=== PATIENT | male | born 1940 | race African-American/Black ===

== ENCOUNTER 2022-10-31 16:53 | Emergency (ER) | payer MEDICARE ==
[~2022-10-31] VITALS: Ht 180.3 cm; Wt 102.1 kg
[2022-10-31] MEDS ORDERED: SODIUM CHLORIDE 0.9% 500ML 500 ML ONE (17:05)
[2022-10-31] MEDS ORDERED: SODIUM CHLORIDE 0.9% 500ML 500 ML IV ONE (17:15)
[2022-10-31 17:17] LABS: BASOPHILS % 0.4 % (0.0-1.0); EOSINOPHILS % 0.5 % (0.0-6.0); HEMATOCRIT 43.4 % (38.2-49.6); HEMOGLOBIN 15.2 g/dL (14.0-18.0); LYMPHOCYTES # (AUTO) 1.6 (1.0-3.2); LYMPHOCYTES % 29.1 % (18.0-39.1); MEAN CORPUSCULAR HEMOGLOBIN 32.5 pg (28-32); MEAN CORPUSCULAR VOLUME 92.9 fL (81-99); MONOCYTES # (AUTO) 0.4 (0.2-0.8); MONOCYTES % 6.4 % (4.4-11.3); NEUTROPHILS # (AUTO) 3.6 (2.1-6.9); NEUTROPHILS % 63.4 % (38.7-80.0); PLATELET COUNT 123 x10e3/uL (140-360); RED BLOOD COUNT 4.67 x10e6/uL (4.3-5.7); RED CELL DISTRIBUTION WIDTH 13.2 % (11.7-14.4)
[2022-10-31 17:24] LABS: INR 1.66; PROTHROMBIN TIME 20.1 seconds (11.9-14.5)
[2022-10-31 17:25] LABS: PARTIAL THROMBOPLASTIN TIME 31.4 seconds (23.8-35.5)
[2022-10-31 17:35] LABS: ALBUMIN 3.7 g/dL (3.5-5.0); ANION GAP 15.3 mmol/L (8-16); CREATININE, SERUM 1.08 mg/dL (0.72-1.25); MAGNESIUM 1.6 MG/DL (1.3-2.1); POTASSIUM 3.3 mmol/L (3.5-5.1)
[2022-10-31 17:38] LABS: CLARITY,URINE HAZY (CLEAR); COLOR,URINE YELLOW (YELLOW); KETONES,URINE NEGATIVE (NEGATIVE); LEUKOCYTE ESTERASE ,URINE NEGATIVE (NEGATIVE); NITRITE,URINE NEGATIVE (NEGATIVE); PROTEIN,URINE DIPSTICK NEGATIVE (NEGATIVE); URINE UROBILINOGEN 0.2 mg/dL (0.2 - 1)
[2022-10-31 17:39] LABS: BACTERIA,URINE FEW /HPF; EPITHELIAL CELLS,URINE FEW /LPF; RBC,URINE 0-5 /HPF (0-5); WBC,URINE (MAN) 0-5 /HPF (0-5)
[2022-10-31] MEDS ORDERED: IOPAMIDOL 370 MG/ML 100 ML INFUS..BTL INJ ONE (17:40)
[2022-10-31 17:41] LABS: CREATINE KINASE MB 2.4 ng/mL (0-5.0)
[2022-10-31] MEDS ORDERED: POTASSIUM CHLORIDE 20 MEQ TAB CR PO STA (18:12)
[2022-10-31 20:19] VITALS: BP 139/85
== END 2022-10-31 20:05 | disposition home or self-care (01) ==
LOC: ER 17:02
DX: R27.0 Ataxia, unspecified (principal); R50.9 Fever, unspecified; I10 Essential (primary) hypertension; E11.65 Type 2 diabetes mellitus with hyperglycemia; I48.91 Unspecified atrial fibrillation; Z20.822 Contact with and (suspected) exposure to COVID-19; R94.31 Abnormal electrocardiogram [ECG] [EKG]
CPT/HCPCS: 36415; 70450; 70496; 70498; 71045; 80053; 81001; 82550; 82553; 83735; 84484; 85025; 85610; 85730; 87086; 93005; 99284; J7040; Q9967; U0002

== ENCOUNTER 2025-05-19 09:30 | Emergency (ER) | payer MEDICARE ==
[~2025-05-19] VITALS: Ht 180.3 cm; Wt 93.4 kg
[2025-05-19 09:30] VITALS: TEMP 97.6
[~2025-05-19 09:30] MED LIST: ALLOPURINOL300 MG PO; BUPROPION XL150 MG PO; CIALIS20 MG; COREG12.5 MG PO; FLOMAX0.4 MG PO; FUROSEMIDE40 MG PO; GABAPENTIN100 MG PO; MONTELUKAST SOD10 MG PO; OXYBUTYNIN CHLOR5 MG PO; POTASSIUM CHLO20 ME1 PO; TIZANIDINE HCL4 M1 PO; VALSARTAN-HCTZ1 EAC3; WARFARIN SODIUM5 MG PO
[2025-05-19] MEDS: SODIUM CHLORIDE 0.9% 1000ML 1,000 ML IV STA (10:00)
[2025-05-19 10:10] LABS: BASOPHILS % 0.1 % (0.0-1.0); EOSINOPHILS % 0.6 % (0.0-6.0); LYMPHOCYTES % 18.6 % (18.0-39.1); MONOCYTES % 10.3 % (4.4-11.3); NEUTROPHILS % 68.9 % (38.7-80.0); RED CELL DISTRIBUTION WIDTH 14.7 % (11.7-14.4)
[2025-05-19 10:24] LABS: EST GLOMERULAR FILTRATION RATE 64.0 ML/MIN (>=60)
[2025-05-19] MEDS ORDERED: IOPAMIDOL 370 MG/ML 100 ML INFUS..BTL INJ ONE (10:42)
[2025-05-19] MEDS: DICYCLOMINE HCL 20 MG/2 ML VIAL IM ONE (11:34)
[2025-05-19 11:54] LABS: EPITHELIAL CELLS,URINE FEW /LPF; LEUKOCYTE ESTERASE ,URINE NEGATIVE (NEGATIVE); PROTEIN,URINE DIPSTICK NEGATIVE (NEGATIVE); URINE UROBILINOGEN 2 mg/dL (0.2 - 1); WBC,URINE (MAN) 0-5 /HPF (0-5)
[2025-05-19 13:15] LABS: INR 1.45
[2025-05-19 14:17] VITALS: PULSE 79; RESP 16; O2SAT 100
[2025-05-19 14:18] VITALS: TEMP 98.3
== END 2025-05-19 14:30 | disposition other institution (70) ==
LOC: ER 09:36
DX: L76.22 Postprocedural hemorrhage of skin and subcutaneous tissue following other procedure (principal); T81.40XA Infection following a procedure, unspecified, initial encounter; L76.82 Other postprocedural complications of skin and subcutaneous tissue; I10 Essential (primary) hypertension; E11.65 Type 2 diabetes mellitus with hyperglycemia; I48.91 Unspecified atrial fibrillation; I25.10 Atherosclerotic heart disease of native coronary artery without angina pectoris; F32.A Depression, unspecified; M10.9 Gout, unspecified; R94.31 Abnormal electrocardiogram [ECG] [EKG]
CPT/HCPCS: 36415; 74177; 80053; 81001; 83605; 83690; 85025; 85610; 87040; 93005; 99284; J2543; J7030; Q9967